=== PATIENT | female | born 1990 | race African-American/Black ===

== ENCOUNTER 2017-06-22 14:59 | Emergency (ER) | payer MEDICARE, MEDICAID ==
[~2017-06-22] VITALS: Ht 154.9 cm; Wt 72.0 kg
[2017-06-22 15:00] VITALS: BP 119/74
== END 2017-06-22 16:51 | disposition left against medical advice (07) ==
LOC: ER 14:59
DX: R10.9 Unspecified abdominal pain (principal); Z53.21 Procedure and treatment not carried out due to patient leaving prior to being seen by health care provider

== ENCOUNTER 2018-01-03 22:13 | Observation (INO) | payer MEDICARE, MEDICAID ==
[~2018-01-03] VITALS: Ht 157.5 cm; Wt 83.0 kg
[2018-01-03] MEDS ORDERED: PNV1TABL76 MT (22:55)
[2018-01-03] MEDS ORDERED: SODIUM CHLORIDE 0.9% 1,000 ML IV SCH (23:30)
== END 2018-01-04 02:35 | disposition home or self-care (01) ==
LOC: L&D 22:13
PROVIDERS: ADMIT Specialist; ATTEND Specialist
DX: O26.893 Other specified pregnancy related conditions, third trimester (principal); R10.30 Lower abdominal pain, unspecified; Z3A.37 37 weeks gestation of pregnancy
CPT/HCPCS: 76815; 76818; 96360; 96361; 99281; A4215; G0378; J7030

== ENCOUNTER 2018-01-11 18:05 | Observation (INO) | payer MEDICARE, MEDICAID ==
[~2018-01-11] VITALS: Ht 157.5 cm; Wt 83.0 kg
[~2018-01-11 18:05] MED LIST: PNV1TABL76 MT
== END 2018-01-11 19:00 | disposition home or self-care (01) ==
LOC: L&D 18:05
PROVIDERS: ADMIT Obstetrics & Gynecology; ATTEND Obstetrics & Gynecology
DX: O62.9 Abnormality of forces of labor, unspecified (principal); Z3A.38 38 weeks gestation of pregnancy
CPT/HCPCS: 99281; G0378

== ENCOUNTER 2018-01-24 20:52 | Observation (INO) | payer MEDICARE, MEDICAID ==
[~2018-01-24] VITALS: Ht 157.5 cm; Wt 88.9 kg
== END 2018-01-24 23:53 | disposition home or self-care (01) ==
LOC: L&D 20:52
PROVIDERS: ADMIT Obstetrics & Gynecology; ATTEND Obstetrics & Gynecology
DX: O26.893 Other specified pregnancy related conditions, third trimester (principal); R10.9 Unspecified abdominal pain; O48.0 Post-term pregnancy; Z3A.40 40 weeks gestation of pregnancy
CPT/HCPCS: 59025; 76805; 76818; G0378